=== PATIENT | female | born 1940 | race Caucasian/White ===

== ENCOUNTER 2016-03-20 14:24 | Inpatient (IN) | payer MEDICARE ==
[2016-03-20] VITALS (7 sets, daily range): BP systolic 132–154; BP diastolic 80–92; PULSE 76–96; RESP 17–22; O2SAT 88–99
[~2016-03-20] VITALS: Ht 154.9 cm; Wt 62.8 kg
[2016-03-20 15:22] LABS: BASOPHILS % (AUTO) 0.4 % (0-3); EOSINOPHILS % (AUTO) 2.3 % (0-5); MONOCYTES % (AUTO) 9.5 % (4-12); Mean Corpuscular Hemoglobin 28.5 pg (27.0-35.0); Mean Corpuscular Volume 91.4 fL (81-100); NEUTROPHILS % (AUTO) 72.3 % (40-74); Platelet Count 244 bil/L (150-400)
--- NOTE | 2016-03-20 15:35 | DRSVH ---
PROCEDURE: X-RAY CHEST ONE VIEW ([id number]) INDICATIONS: 75 year-old female with shortness of breath and history of interstitial lung disease. TECHNIQUE: One view of the chest was acquired. COMPARISON: [facility], CT, CT CHEST WO CON, 03/17/2016, 15:12. [facility], CT, CHEST HI-RESOLUTION, 07/22/2014, 13:33. [facility], CR, XR CHEST 2VW, 01/19/2016, 1 4:20. [facility], CR, XR CHEST 2VW, 07/27/2015, 11:10. [facility] [place], CR , CHEST 2VW, 10/28/2010, 10:24. FINDINGS: Surgical changes and devices: None. Lungs and pleura: No pleural effusions or pneumothorax. No acute airspace opacities. Background basa l predominant interstitial opacities are unchanged. Mediastinum: Mediastinal contours appear normal. Mild cardiomegaly is unchanged. Bones and chest wall: No suspicious bony lesions. Overlying soft tissues appear unremarkable. IMPRESSION: Background chronic interstitial lung disease as before, without superimposed acute pulmon idris disease. Dictated by: Jp Carreon M.D. on 03/20/2016 at 15:33 Approved by: Jp Careron M.D. on 03/20/2016 at 15:33
--- NOTE | 2016-03-20 15:36 | ED.REPORT ---
HPI-General Illness Date of Service Mar 20, 2016 ED Provider: Oriana Grimes MD 75 year old female with a hx of interstitial lung disease and HTN who presents to the ED due to SOB that has been progressively worsening over the last 2 weeks. Along with the dyspnea the patient has had worsening edema, chronic cough , decreased urination, constipation (has not had a normal BM for 2 weeks), bloating, nausea and decreased O2 levels. Pt's has a pulse oximeter. Pt has noticed her O2 level as low as 84% with exertion. Pt also uses albuterol inhalers as needed, and Symbicort 2x daily for her interstitial lung disease. She denies CP and vomiting. Nursing Notes Stated Complaint: SHORTNESS OF BREATH, BLOATING, FEET SWELLING Chief Complaint: General Complaint Nursing Notes Reviewed: Yes Allergies: Coded Allergies: codeine (Verified Allergy, Mild, 03/20/16) General Time Seen by MD: 15:35 Chief Complaint Breathing problem Hx Obtained From: Patient, Spouse Arrived By: Walk-in Sudden in Onset?: No Onset Occurred: More than a week ago... Symptom Duration: Since onset Severity: Current: No pain currently Associated with: Reports: Shortness of breath, Denies: Chest pain, Vomiting Pertinent Negative: Relieved by nothing Past Medical History Past Medical History Notes: ECHO 1 year ago with normal EF per patient Past Medical History Interstitial lung disease RA Reports: Hypertension, Denies: Congestive heart failure Past Surgical History None reported Smoking History Former Smoker Social History Other Social History: Ambulatory Status Independent Review of Systems Full Review of Systems Constitutional: Denies: Chills, Fever Respiratory: Reports: Non-productive cough (chronic), Shortness of breath Cardiovascular: Reports: Edema, Denies: Chest pain GI: Reports: Constipation, Nausea, Denies: Abdominal pain, Diarrhea, Vomiting Musculoskeletal: Reports: Extremity swelling, Denies: Back pain, Extremity pain Skin: Denies Diaphoresis, Denies Rash Neurologic: Denies: Change LOC, Headache Complete sys rev & neg: except as marked. Physical Exam Vital Signs Vital Signs Date Time Temp Pulse Resp B/P Pulse Ox O2 Delivery O2 Flow Rate FiO2 03/20/16 17:20 87 19 154/86 91 Nasal Cannula 1.5 03/20/16 16:43 96 18 91 Nasal Cannula 1.5 03/20/16 15:40 89 20 144/84 88 Nasal Cannula 1.5 03/20/16 14:37 36.6 87 20 134/80 93 Room Air Initial VS: Reviewed, Vital signs normal Head / Eyes: Atraumatic, Normocephalic, PERRL ENT: Mucous membranes moist, Conjunctiva normal, No scleral icterus Neck: Supple, Full range of motion Extremities: Vascular intact, Neuro intact Skin: Warm, Dry, No cyanosis Neurologic: Alert, Oriented, Nonfocal Psychiatric: Mood/affect normal, Behavior normal, Normal thought content General/Constitutional: Awake, Alert Respiratory / Chest: No respiratory distress Bilat rales Cardiovascular: Heart rate NL, Regular rhythm, Heart sounds NL, Cap refill not delayed, Peripheral circulation NL Abdomen: Soft, Non-tender, No guarding, No rebound Bowel Sounds / Distention: Positive: Bowel sounds hypoactive Interpretation & Diagnostics Lab Results Interpretation Result Diagram: 03/20/16 1515 03/20/16 1515 Test 03/20/16 15:15 03/20/16 15:52 03/20/16 16:40 White Blood Count 7.9th/mm3 (3.8-10.1) Red Blood Count 4.42mil/mm3 (3.90-5.20) Hemoglobin 12.6g/dL (12.0-15.6) Hematocrit 40.4% (35.0-46.0) Mean Corpuscular Volume 91.4fL (81-100) Mean Corpuscular Hemoglobin 28.5pg (27.0-35.0) Mean Corpuscular Hemoglobin Concent 31.2% (32.0-37.0) Red Cell Distribution Width 16.9% (12.3-15.4) Platelet Count 244bil/L (150-400) Neutrophils (%) (Auto) 72.3% (40-74) Lymphocytes (%) (Auto) 15.1% (14-46) Monocytes (%) (Auto) 9.5% (4-12) Eosinophils (%) (Auto) 2.3% (0-5) Basophils (%) (Auto) 0.4% (0-3) Sodium Level 143mEq/L (134-144) Potassium Level 4.0mEq/L (3.5-5.2) Chloride Level 107mEq/L (97-108) Carbon Dioxide Level 22mmol/L (18-29) Blood Urea Nitrogen 21mg/dL (8-27) Creatinine 0.68mg/dL (0.57-1.00) Estimat Glomerular Filtration Rate 121mL/min (>59) Glucose Level 118mg/dL (60-99) Calcium Level 8.9mg/dL (8.5-10.1) Magnesium Level 1.5mg/dL (1.6-2.6) Total Bilirubin 0.6mg/dL (0.0-1.2) Aspartate Amino Transf (AST/SGOT) 69U/L (0-50) Alanine Aminotransferase (ALT/SGPT) 63U/L (0-32) Alkaline Phosphatase 97U/L (25-165) Troponin T < 0.010ug/L (0.0-0.011) Pro-B-Type Natriuretic Peptide 4000pg/mL (0-738) Total Protein 6.2g/dL (6.4-8.4) Albumin 3.1g/dL (3.4-5.0) Urine Color Yellow (YELLOW) Urine Appearance Hazy (CLEAR,HAZY) Urine pH 5.5 (5.0-8.0) Urine Specific [place] 1.030 (1.003-1.035) Urine Protein Tracemg/dL (NEG,TRACE) Urine Glucose (UA) Negativemg/dL (NEGATIVE) Urine Ketones Negativemg/dL (NEGATIVE) Urine Occult Blood Negative (NEGATIVE) Urine Nitrite Negative (NEGATIVE) Urine Bilirubin Negative (NEGATIVE) Urine Urobilinogen Normalmg/dL (NORMAL) Urine Leukocyte Esterase Negative (NEGATIVE) Urine RBC 0-2/hpf (0-2) Urine WBC 0-5/hpf (0-5) Urine Epithelial Cells Occasional/hpf (NONE-MOD) Urine Crystals None seen (NONE SEEN) Urine Bacteria None/hpf (NONE-FEW) Urine Hyaline Casts None/lpf (NONE) Urine Granular Casts None seen (NONE SEEN) Urine Waxy Casts None seen (NONE SEEN) Urine Red Blood Cell Casts None seen (NONE SEEN) Urine White Blood Cell Casts None seen (NONE SEEN) Urine Mucus None seen (None Seen) Urine Trichomonas None seen (NONE SEEN) Urine Yeast None (NONE SEEN) Urinalysis Comment None Urine Culture Reflexed Not indicated Hold Purple Top Tube Received (Received) Hold Blue Top Tube Received (Received) Thyroid Stimulating Hormone (TSH) 2.420uIU/mL (0.450-4.500) Hold [place] Top Tube Received (Received) Hold [place] Top Tube Received (Received) General Lab Results Interp 1: Labs reviewed ECG Interpretation ECG Interpretation: No acute ST or T wave changes. Time: 15:44 Interpreted by: ED physician Normal ECG Interpretation: Normal rate (87), Normal sinus rhythm, Normal intervals X-Ray Chest Interpretation Chest Xray Interpretation: IMPRESSION: Background chronic interstitial lung disease as before, without superimposed acute pulmonary disease. Dictated by: Jp Carreon M.D. on 03/20/2016 at 15:33 View: Portable, 1 view Interpretation / Wet Read by: Interpret - Radiologist X-Ray Abdominal Interpretation IMPRESSION: 1. No evidence for bowel obstruction or fecal impaction. 2. Background chronic interstitial lung disease again noted. Dictated by: Jp Carreon M.D. on 03/20/2016 at 16:19 Study: 2 view Interpretation / Wet Read by: Interpret - Radiologist Re-Eval/Medical Decision Med Decision/Clinical Course The patient presents with shortness of breath and episodes of hypoxia. History of pulmonary fibrosis. Evaluation here reveals a component of congestive heart failure, the patient really believe looks well but with ambulation she desaturates down to 84% prior admission for oxygenation. Differential diagnoses considered were worsening of her pulmonary fibrosis, pneumonia, pulmonary embolus, acute coronary syndrome, and congestive heart failure. Time of Eval: 17:55 Re-Evaluation/Progress Note: Pt updated of labs, imaging and ECG results. Recommended admission. Pt understands and agrees with plan. All questions addressed. Consultation : Referral / Consult Name: Jayjay Starkey MD Consulted With: Hospitalist Call Returned at: 17:52 Sail Maker: Will see patient, Agrees with eval, Agrees with plan, Accepts admit Counseled Regarding: Diagnosis, Lab results, Need for admission Discharge & Departure Primary Impression: Hypoxia Additional Impressions: Pulmonary fibrosis CHF (congestive heart failure) Congestive heart failure type: unspecified congestive heart failure type Congestive heart failure chronicity: unspecified congestive heart failure chronicity Qualified Code: I50.9 - Heart failure, unspecified Disposition: ADMITTED TO HOSPITAL Discharge Condition All VS Reviewed: Yes Referrals: Jasmin Arceo (PCP) Scribe Attestation Portions of this note were transcribed by Sima Quiroz. I, (Dr. Grimes) personally performed the history, physical exam and medical decision-making; I reviewed and confirmed the accuracy of the information in the transcribed note. Signed by: Sima Quiroz. 03/20/2016, 1800 copies to: Jasmin Arceo Jena M MD Mar 20, 2016 15:36 Sima Quiroz Mar 20, 2016 16:27
[2016-03-20 16:06] LABS: Magnesium 1.5 mg/dL (1.6-2.6)
[2016-03-20 16:07] LABS: TROPONIN T < 0.010 ug/L (0.0-0.011)
[2016-03-20 16:12] LABS: APPEARANCE,URINE HAZY (CLEAR,HAZY); COLOR,URINE YELLOW (YELLOW); PH,URINE 5.5 (5.0-8.0)
[2016-03-20 16:13] LABS: OCCULT BLOOD,URINE NEGATIVE (NEGATIVE); UROBILINOGEN,URINE NORMAL (NORMAL)
--- NOTE | 2016-03-20 16:21 | DRSVH ---
PROCEDURE: X-RAY ABDOMEN WITH ERECT AND/OR DECUBITUS VIEWS ([id number]) INDICATIONS: 75 year-old female with no bowel movements. TECHNIQUE: 2 views of the abdomen were acquired. COMPARISON: [facility], CR, XR CHEST 1VW, 03/20/2016, 14:58. [facility], CT, CT CHEST WO CON, 03/17/2016, 15:12. FINDINGS: Surgical changes and devices: Pessary device projects over the inferior pelvis. Bowel: No pneumoperitoneum. The bowel gas pattern is normal, with no visible stool within the dista l colon. Soft tissues: Chronic basilar pulmonary interstitial opacities are again noted. No masses; visualize d solid organ contours appear normal in size. No suspicious abdominal calcifications. Bones: No suspicious bony abnormalities. IMPRESSION: 1. No evidence for bowel obstruction or fecal impaction. 2. Background chronic interstitial lung disease again noted. Dictated by: Jp Carreon M.D. on 03/20/2016 at 16:19 Approved by: Jp Carreon M.D. on 03/20/2016 at 16:19
[2016-03-20] MEDS ORDERED: Albuterol-Ipratropium 3 mL Inhalation Solution NEB ONE (16:30)
[2016-03-20] MEDS ORDERED: Furosemide 10 mg/mL 2 mL Inj IVPUSH ONE (16:30)
[2016-03-20] MEDS ORDERED: predniSONE 20 mg Tablet PO ONE (17:05)
[2016-03-20] MEDS ORDERED: Alum-Mag Hydrox-Simeth 30 mL Suspension PO PRN (19:05)
[2016-03-20] MEDS ORDERED: Ondansetron 2 mg/mL 2 mL Inj IVPUSH PRN (19:05)
[2016-03-20] MEDS ORDERED: Polyethylene Glycol (PEG) 17 Gm Powder PO PRN (19:05)
[2016-03-20] MEDS ORDERED: Magnesium Sulf 2 Gm/50mL Water 2 GM in IV Premix 1 EACH IV ONE (19:15)
[2016-03-20] MEDS ORDERED: SIMV20TA4 PO (21:58)
[2016-03-20] MEDS ORDERED: OMEP40CA36 PO (21:58)
[2016-03-20] MEDS ORDERED: CLOB15CR3 TOP (21:58)
[2016-03-20] MEDS ORDERED: DIPH25CA6 PO (21:58)
[2016-03-20] MEDS ORDERED: CHOL100045 PO (21:58)
[2016-03-20] MEDS ORDERED: ALBU90AE IH (21:58)
[2016-03-20] MEDS ORDERED: NPR500T PO (21:58)
[2016-03-20] MEDS ORDERED: LEFL20TA18 PO (21:58)
[2016-03-20] MEDS ORDERED: ETAN50PE SQ (21:58)
[2016-03-20] MEDS ORDERED: ALLO300T2 PO (21:58)
[2016-03-20] MEDS ORDERED: diphenhydrAMINE 25 mg Capsule PO PRN (22:00)
--- NOTE | 2016-03-20 22:00 | PCM.HPMED ---
Subjective Date of Service Mar 20, 2016 Primary Provider: Admitting Physician: Jayjay Starkey MD Primary Care Physician: Jasmin Arceo Attending Physician: Jayjay Starkey MD Admit Status: From the Emergency Department Chief Complaint: Shortness of breath with abdominal bloating for 2 weeks. 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 This is thought to be related to her rheumatoid arthritis. She has been experiencing abdominal bloating, along with diminished bowel movements for the last 1-2 weeks. She describes frequent liquid bowel movements without a solid component. Her BNP is very high, and she feels much better in the emergency department after a dose of Lasix. An echocardiogram done last year she reports was normal. She was dropping into the low 80s with activity on room air in the emergency department initially but is feeling much better now after the Lasix. She has never been diagnosed with congestive heart failure and has no cardiac history. There has been no chest pain, palpitations, abdominal pain. There has been no fever or muscle aches but her chronic cough has worsened. She has not traveled anywhere recently and has had no other immobilizing episodes to put her at high risk for a pulmonary embolus. As part of her pulmonary surveillance she had a CT of her chest done just 4 days ago. She will be seeing Dr. Stone in follow-up soon. She had a colonoscopy in [address] [place] [address] Elder and plans for another one in 2019. Her description of the "constipation" sounds worrisome for a solid lesion obstructing with postobstructive liquid leakage. Review of Systems: No fevers, chills, sweats, bleeding, seizures, headaches, chest pain, rash, depression, new allergies. Positive for worsening cough, shortness of breath, chronic joint pain, bloating. Allergies Coded Allergies: codeine (Verified Allergy, Mild, 03/20/16) Home Medications Albuterol HFA Allopurinol 300 mg a day Atenolol 50 mg a day Benadryl as needed Clobetasol ointment as needed Enbrel 50 mg every Sunday subcutaneous Hydrocortisone rectal suppository 25 mg as needed Naproxen 600 mg twice a day Leflunomide 20 mg a day Omeprazole 40 mg a day Simvastatin 20 mg a day Vitamin D 1000 units a day PMH Rheumatoid arthritis Interstitial pulmonary fibrosis Peripheral neuropathy Family History Positive for pulmonary fibrosis in her twin sister, nonspecific arthritis in her father. Social History Occupation: inpatientmedical older adult social work specialist Smoking Status: Former Smoker Exam Vital Signs Vital Sign - Last Date Time Temp Pulse Resp B/P Pulse Ox O2 Delivery O2 Flow Rate FiO2 03/20/16 18:40 79 22 97 Nasal Cannula 1.5 03/20/16 17:20 154/86 03/20/16 14:37 36.6 Exam Alert and oriented 3, no apparent distress. Pupils are equally round and reactive to light and accommodation, extraocular muscles are intact, sclerae are pink and nonicteric. Throat looks normal. JVD is less than 6 cm. No carotid bruits are heard. No lymph nodes are felt head, neck, supraclavicular area. Heart is regular rate and rhythm without murmur. Lungs have coarse crackles at all levels worse at the bases. Abdomen is soft, bowel sounds are active, the bladder is distended, there is no other organomegaly or tenderness. Extremities have no ankle edema Neuro exam. Cranial nerves II through XII tested intact. Motor function is 5 out of 5 throughout. Deep tendon reflexes are normal throughout. Gait and balance are not tested. She recognizes me and has a detailed conversation about historical interactions from her prior work as a clinical older adult social work specialist. Lab and Diagnostics Labs Laboratory Tests 72 Hours Test 03/20/16 15:15 03/20/16 15:52 03/20/16 16:40 White Blood Count 7.9th/mm3 (3.8-10.1) Red Blood Count 4.42mil/mm3 (3.90-5.20) Hemoglobin 12.6g/dL (12.0-15.6) Hematocrit 40.4% (35.0-46.0) Mean Corpuscular Volume 91.4fL (81-100) Mean Corpuscular Hemoglobin 28.5pg (27.0-35.0) Mean Corpuscular Hemoglobin Concent 31.2% (32.0-37.0) Red Cell Distribution Width 16.9% (12.3-15.4) Platelet Count 244bil/L (150-400) Neutrophils (%) (Auto) 72.3% (40-74) Lymphocytes (%) (Auto) 15.1% (14-46) Monocytes (%) (Auto) 9.5% (4-12) Eosinophils (%) (Auto) 2.3% (0-5) Basophils (%) (Auto) 0.4% (0-3) Sodium Level 143mEq/L (134-144) Potassium Level 4.0mEq/L (3.5-5.2) Chloride Level 107mEq/L (97-108) Carbon Dioxide Level 22mmol/L (18-29) Blood Urea Nitrogen 21mg/dL (8-27) Creatinine 0.68mg/dL (0.57-1.00) Estimat Glomerular Filtration Rate 121mL/min (>59) Glucose Level 118mg/dL (60-99) Calcium Level 8.9mg/dL (8.5-10.1) Magnesium Level 1.5mg/dL (1.6-2.6) Total Bilirubin 0.6mg/dL (0.0-1.2) Aspartate Amino Transf (AST/SGOT) 69U/L (0-50) Alanine Aminotransferase (ALT/SGPT) 63U/L (0-32) Alkaline Phosphatase 97U/L (25-165) Troponin T < 0.010ug/L (0.0-0.011) Pro-B-Type Natriuretic Peptide 4000pg/mL (0-738) Total Protein 6.2g/dL (6.4-8.4) Albumin 3.1g/dL (3.4-5.0) Hold [place] Top Tube Received (Received) Received (Received) Urine Color Yellow (YELLOW) Urine Appearance Hazy (CLEAR,HAZY) Urine pH 5.5 (5.0-8.0) Urine Specific [place] 1.030 (1.003-1.035) Urine Protein Tracemg/dL (NEG,TRACE) Urine Glucose (UA) Negativemg/dL (NEGATIVE) Urine Ketones Negativemg/dL (NEGATIVE) Urine Occult Blood Negative (NEGATIVE) Urine Nitrite Negative (NEGATIVE) Urine Bilirubin Negative (NEGATIVE) Urine Urobilinogen Normalmg/dL (NORMAL) Urine Leukocyte Esterase Negative (NEGATIVE) Urine RBC 0-2/hpf (0-2) Urine WBC 0-5/hpf (0-5) Urine Epithelial Cells Occasional/hpf (NONE-MOD) Urine Crystals None seen (NONE SEEN) Urine Bacteria None/hpf (NONE-FEW) Urine Hyaline Casts None/lpf (NONE) Urine Granular Casts None seen (NONE SEEN) Urine Waxy Casts None seen (NONE SEEN) Urine Red Blood Cell Casts None seen (NONE SEEN) Urine White Blood Cell Casts None seen (NONE SEEN) Urine Mucus None seen (None Seen) Urine Trichomonas None seen (NONE SEEN) Urine Yeast None (NONE SEEN) Urinalysis Comment None Urine Culture Reflexed Not indicated Hold Purple Top Tube Received (Received) Hold Blue Top Tube Received (Received) Thyroid Stimulating Hormone (TSH) 2.420uIU/mL (0.450-4.500) Hold [place] Top Tube Received (Received) Result Diagram: 03/20/16 1515 03/20/16 1515 X-Rays, CTs and MRIs FINDINGS: Surgical changes and devices: Pessary device projects over the inferior pelvis. Bowel: No pneumoperitoneum. The bowel gas pattern is normal, with no visible stool within the distal colon. Soft tissues: Chronic basilar pulmonary interstitial opacities are again noted. No masses; visualized solid organ contours appear normal in size. No suspicious abdominal calcifications. Bones: No suspicious bony abnormalities. IMPRESSION: 1. No evidence for bowel obstruction or fecal impaction. 2. Background chronic interstitial lung disease again noted. Surgical changes and devices: None. Lungs and pleura: No pleural effusions or pneumothorax. No acute airspace opacities. Background basal predominant interstitial opacities are unchanged. Mediastinum: Mediastinal contours appear normal. Mild cardiomegaly is unchanged. Bones and chest wall: No suspicious bony lesions. Overlying soft tissues appear unremarkable. IMPRESSION: Background chronic interstitial lung disease as before, without superimposed acute pulmonary disease. 12-lead ECG Sinus rhythm without acute ST or T-wave changes. Assessment & Plan 1 - congestive heart failure and acute hypoxia Response to Lasix is impressive. Recheck a BNP and electrolytes in the morning, anticipating a drop in potassium. Check an echocardiogram and consider cardiology consultation. This is most likely an acute phenomena as a result of the acute bronchitis/ pulmonary fibrosis causing a prolonged days long episode of hypoxia. Troponin is normal, recheck in the morning 2 - interstitial lung disease Review CT scan from 4 days ago Plans follow-up with pulmonology soon 3 - rheumatoid arthritis Continued disease modifying anti-rheumatoid agents, which she is quite attached to and dependent on for control of her symptoms. 4 - altered stool frequency and consistency CT abdomen and pelvis to rule out solid lesion producing postobstructive diarrhea. Check TSH. Consider GI consultation. 5 - elevated liver enzymes This is probably a hepatic congestion phenomena. Recheck LFTs in the morning. 6 - hypomagnesemia Dose with IV magnesium and recheck in the morning. Etiology is unclear Jewel Starkey MD Pain Evaluation: Adequate Pain Control Resuscitation Status: CPR: Attempt Resuscitation Jayjay Starkey MD Mar 20, 2016 19:23
[2016-03-20] MEDS ORDERED: Clobetasol Prop 0.05% 15 Gm Ointment TOPICAL PRN (22:27)
[2016-03-20] MEDS ORDERED: 0.9% Sodium Chloride 250 ML ONE (23:05)
[2016-03-20] MEDS ORDERED: ATEN50TA PO (23:35)
[2016-03-21] VITALS (10 sets, daily range): BP systolic 96–129; BP diastolic 61–85; PULSE 74–88; RESP 17–19; O2SAT 95–98
[2016-03-21 06:35] LABS: BASOPHILS % (AUTO) 0.3 % (0-3); EOSINOPHILS % (AUTO) 0.1 % (0-5); MONOCYTES % (AUTO) 6.7 % (4-12); Mean Corpuscular Hemoglobin 28.9 pg (27.0-35.0); Mean Corpuscular Volume 91.1 fL (81-100); NEUTROPHILS % (AUTO) 79.5 % (40-74); Platelet Count 235 bil/L (150-400)
[2016-03-21 07:07] LABS: Magnesium 2.1 mg/dL (1.6-2.6)
[2016-03-21 07:28] LABS: TROPONIN T < 0.010 ug/L (0.0-0.011)
--- NOTE | 2016-03-21 07:41 | NUR ---
Admit note Patient arrived to floor at 1910. Patient was A&Ox3. Peripheral IV saline locked and patent. Vital signs stable.Report received from Carolina GUERRA.
[2016-03-21] MEDS: Pantoprazole 40 mg ER24 Tablet PO SCH (08:10)
--- NOTE | 2016-03-21 11:59 | DRSVH ---
PROCEDURE: CT ABDOMEN AND PELVIS WITH CONTRAST ([id number]) INDICATIONS: Obstructive Diarrhea TECHNIQUE: After the administration of oral and intravenous contrast, 5 mm thick sections acquired from the diap hragms to the symphysis. 5 mm thick coronal and sagittal reformats were performed. For radiation do se reduction, the following was used: automated exposure control, adjustment of mA and/or kV accordi ng to patient size. COMPARISON: None. FINDINGS: Image quality: Excellent. ABDOMEN: Lung bases: Severe fibrotic changes and small pleural effusions are present present. Solid organs: The liver is diffusely hypodense suggesting fatty infiltration. The spleen demonstrat es normal size and enhancement. Gallbladder is unremarkable. Biliary system is non-dilated. Pancrea s enhances normally. No adrenal nodules. Kidneys are normal in size and enhancement, without hydron ephrosis. Peritoneum and bowel: The stomach is decompressed and contrast filled. The small bowel demonstrates n ormal caliber and wall thickness. The appendix demonstrates normal wall thickness and is contrast-nicci led. The ascending, descending, and transverse colon demonstrate normal caliber and wall thickness. T here are multiple diverticular outpouchings in the descending and sigmoid colon. The pericolonic fat stranding is present in the rectosigmoid region. No discrete mucosal thickening. No evidence for liqu id stool within the colon. No pneumatosis or pneumoperitoneum. No discrete free fluid. Nodes and vessels: No retroperitoneal or mesenteric adenopathy. Aorta and inferior vena cava are no rmal in caliber. There are scattered atheromatous calcifications throughout the aorta and iliac arter ies bilaterally. Miscellaneous: No ventral hernias. PELVIS: A pessary is present in the vagina. The uterus and ovaries are grossly unremarkable. Genitourinary: Bladder wall thickness is normal. Miscellaneous: No inguinal hernias or adenopathy. There is diffuse anasarca. Bones: No suspicious bony lesions. No vertebral body compression fractures. IMPRESSION: 1. Mild pericolonic fat stranding in the region of the rectosigmoid which is a nonspecific finding, b ut may be associated with a mild colitis. There is no associated wall thickening in this region. 2. Diverticulosis. No findings to suggest acute diverticulitis. Normal appendix. 3. Generalized anasarca and small pleural effusions. 4. Severe pulmonary fibrosis. 5. No bowel dilatation to suggest obstruction. No findings to suggest liquid stool in the colon. Dictated by: Jyoti Stauffer M.D. on 03/21/2016 at 11:57 Approved by: Jyoti Stauffer M.D. on 03/21/2016 at 11:57
--- NOTE | 2016-03-21 17:40 | DRSVH ---
[facility] [address] [place] [address] Echocardiogram Report Name: CRISTIANE CHANCE EStudy Date : 03/21/2016 Height: 61 in Hospital Exam Location: [facility] Weight: 145 lb Gender: Female BSA: 1.6 m2 : 1940 Age: 75 yrs BP: 129/85 mm Hg Reason For Study: Congestive Heart Failure History: pulmonary fibrosis Ordering Physician: Performed By: Valery Euceda Referring Physician: Jasmin Arceo Interpretation Summary The left ventricle is normal in size. The ejection fraction is estimated to be 65-70%. Flattened septum is consistent with RV pressure overload. There is severe pulmonary hypertension. The right ventricular systolic pressure is estimated at 90 mmHg assuming a right atrial pressure of 8 mm Hg. The right ventricle is moderate to severely dilated. Right ventricular systolic function is moderate to severely reduced. The right atrium is severely dilated. The interatrial septum bows toward left atrium consistent with elevated right atrial pressure. There is moderate to severe tricuspid regurgitation. Compared with the prior exam from 09/03/2014, the RV is significantly enlarged and RV function reduced. The severe TR and severe pulmonary hypertension is also new. No other echocardiographic abnormalities seen. Procedure: A two-dimensional transthoracic echocardiogram with color flow and Doppler was performed. The study quality was technically adequate. Comparison is made with the echocardiogram of 09/03/2014. The patient was in normal sinus rhythm during the exam. Left Ventricle: The left ventricle is normal in size. There is normal left ventricular wall thickness. A false chord is noted (normal variant). 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 The ejection fraction is estimated to be 65-70%. Flattened septum is consistent with RV pressure overload. There are no obvious focal wall motion abnormalities noted but poor endocardial definition reduces the sensitivity for the detection of such. The E/A ratio is reversed with an elevated E/E', suggesting impaired early relaxation of the left ventricle with possible increased filling pressures. Right Ventricle: The right ventricle is moderate to severely dilated. There is no mass or thrombus in the right ventricle. Right ventricular systolic function is moderate to severely reduced. Atria: The left atrium grossly appears normal in size. The right atrium is severely dilated. There is no Doppler evidence for an interatrial shunt. The interatrial septum bows toward left atrium consistent with elevated right atrial pressure. Mitral Valve: The mitral valve leaflets are mildly calcified. The mitral valve chordae are thickened and/or calcified. The mitral papillary muscle appears thickened and/or calcified. There is no mitral regurgitation noted. Aortic Valve: The aortic valve is trileaflet. The aortic valve opens well. There is moderate aortic valve sclerosis. No aortic regurgitation is present. Tricuspid Valve: The tricuspid valve leaflets are thickened and/or calcified, but open well. There is moderate to severe tricuspid regurgitation. The right ventricular systolic pressure is estimated at 90 mmHg assuming a right atrial pressure of 8 mm Hg. There is severe pulmonary hypertension. Pulmonic Valve: The pulmonic valve is normal in structure and function. Great Vessels: The aortic root is normal size. The ascending aorta is normal in size. The aortic arch could not be visualized. The IVC is of normal diameter and collapses less than 50% with a sniff. This suggests a right atrial pressure of 8 mm Hg. Pericardium/ Pleura There is no pericardial effusion. MMode/2D Measurements & Calculations LVIDd: 4.0 cm RA long axis LVOT diam LVIDs: 2.4 cm LA A2 area: 15.2 cm FS: 41.0 % LA A4 area: 16.7 cm RA area AoV Opening EPSS: 0.45 cm LA length (vol): 5.4 cm IVSd: 0.75 cm LA vol: 39.6 ml : 23.4 cm Ao root diam LVPWd: 0.87 cm LA vol index RA vol : 77.2 ml asc Aorta RA Diam: 3.2 cm IVC diam: 2.1 cm : 46.8 mm/ RVDd minor : 3.5 cm LV young. diameter/BSA LV sys. diameter/BSA TAPSE: 1.5 cm (cm/m^2): 2.4 (cm/m^2): 1.4 Doppler Measurements & Calculations Ao V2 max MV E max cesar MV E/A: 0.89 TR max cesar : 135.0 cm/sec : 111.0 cm/sec Med Peak E' Cesar : 453.5 cm/sec Ao max PG MV A max cesar TR max PG : 7.3 mmHg : 124.3 cm/sec E/E' med: 17.1 : 82.3 mmHg Ao mean PG MV P1/2t: 76.9 msec Pulm A Revs Dur PA V2 max MVA(VTI): 1.4 cm2 : 68.5 cm/sec LVOT Max Cesar MV A dur: 0.11 sec PA mean PG : 87.5 cm/sec IGNACIO(I,D): 1.7 cm PA Accel Time sev ratio : 0.06 sec MV V2 mean MV P1/2t max cesar Ao V2 mean LV V1 max PG : 72.7 cm/sec : 94.8 cm/sec MV mean PG Ao V2 VTI: 24.9 cm LV V1 VTI MVA(P1/2t): 2.9 cm2 : 17.3 cm MV V2 VTI IGNACIO(V,D): 1.6 cm2 MV dec time : 0.26 sec PA V2 mean IGNACIO indexed to BSA Pulm A Revs Dur - MV : 48.4 cm/sec (cm^2/m^2): 1.0 A Dur: -0.03 msec Reading Physician:05:40 PM
[2016-03-21] MEDS ORDERED: SULF-239 PO (17:54)
[2016-03-21] MEDS ORDERED: SULF1TAB7 PO (18:04)
[2016-03-21] MEDS: Albuterol 2.5 mg/3 mL Inhalation Solution NEB PRN (22:56)
--- NOTE | 2016-03-21 23:30 | PCM.PNMED ---
Subjective Date of Service Mar 21, 2016 Subjective Patient has no new complaints. She is feeling much better than when she came into the emergency room. She has no chest pain and states that the diagnosis of congestive heart failure is all new to her Exam Vital Signs Vital Sign - Last Date Time Temp Pulse Resp B/P Pulse Ox O2 Delivery O2 Flow Rate FiO2 03/21/16 23:11 75 03/21/16 22:57 18 96 Nasal Cannula 2.00 03/21/16 20:01 36.5 99/61 Intake and Output 03/20/16 03/20/16 03/21/16 Cumulative From/Thru 15:00 23:00 07:00 03/20/16 14:37 - 03/21/16 05:32 Intake Total 560 ml 560 ml Output Total 700 ml 700 ml Balance -140 ml -140 ml Intake Oral 560 ml 560 ml Output Urine Total 700 ml 700 ml Exam General: Patient is lying comfortably in bed with her head elevated about 30. She appears comfortable at present time. HEENT: Head is atraumatic normocephalic. Eyes: Pupils are equally round and reactive to light and accommodation. Extraocular muscles are intact. Sclera are white anicteric. Subconjunctival mucosa is pink. Ears and nose are unremarkable. Oropharynx: There are no mucosal lesions, there is no thrush, there is no pharyngitis. Neck: Is supple, there are no nodes, or masses, or tenderness. Chest: Patient has some bibasilar rales, otherwise the lungs are clear. Heart: Rate, rhythm is regular. There is a grade 2/6 systolic ejection murmur heard best at left sternal border. There is no rub or gallop. Abdomen: Good bowel sounds are present. Abdomen is soft, nontender, no organomegaly or masses were appreciated. Extremities: Are symmetrical and well perfused. There is no edema, there is no cellulitis, no rash. Neurologic: There are no focal neurological deficits. Cranial nerves II through XII are intact. There are no sensory or motor deficits. Psychiatric: Patients mood is calm and shows no sign of agitation. Genital: Deferred Rectal: Deferred Lab and Diagnostics Result Diagram: 03/21/16 0605 03/21/16 0605 X-Rays, CTs and MRIs FINDINGS: Surgical changes and devices: Pessary device projects over the inferior pelvis. Bowel: No pneumoperitoneum. The bowel gas pattern is normal, with no visible stool within the distal colon. Soft tissues: Chronic basilar pulmonary interstitial opacities are again noted. No masses; visualized solid organ contours appear normal in size. No suspicious abdominal calcifications. Bones: No suspicious bony abnormalities. IMPRESSION: 1. No evidence for bowel obstruction or fecal impaction. 2. Background chronic interstitial lung disease again noted. Surgical changes and devices: None. Lungs and pleura: No pleural effusions or pneumothorax. No acute airspace opacities. Background basal predominant interstitial opacities are unchanged. Mediastinum: Mediastinal contours appear normal. Mild cardiomegaly is unchanged. Bones and chest wall: No suspicious bony lesions. Overlying soft tissues appear unremarkable. IMPRESSION: Background chronic interstitial lung disease as before, without superimposed acute pulmonary disease. 12-lead ECG Sinus rhythm without acute ST or T-wave changes. Cardiac Echo Impressions Echocardiogram Report Name: CRISTIANE CHANCE EStudy Date : 03/21/2016 Height: 61 in Hospital Exam Location: [facility] Weight: 145 lb Gender: Female BSA: 1.6 m2 : 1940 Age: 75 yrs BP: 129/85 mm Hg Reason For Study: Congestive Heart Failure History: pulmonary fibrosis Ordering Physician: Performed By: Valery Euceda Referring Physician: Jasmin Arceo Interpretation Summary The left ventricle is normal in size. The ejection fraction is estimated to be 65-70%. Flattened septum is consistent with RV pressure overload. There is severe pulmonary hypertension. The right ventricular systolic pressure is estimated at 90 mmHg assuming a right atrial pressure of 8 mm Hg. The right ventricle is moderate to severely dilated. Right ventricular systolic function is moderate to severely reduced. The right atrium is severely dilated. The interatrial septum bows toward left atrium consistent with elevated right atrial pressure. There is moderate to severe tricuspid regurgitation. Compared with the prior exam from 09/03/2014, the RV is significantly enlarged and RV function reduced. The severe TR and severe pulmonary hypertension is also new. No other echocardiographic abnormalities seen. 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 This is thought to be related to her rheumatoid arthritis. She has been experiencing abdominal bloating, along with diminished bowel movements for the last 1-2 weeks. She describes frequent liquid bowel movements without a solid component. Her BNP is very high, and she feels much better in the emergency department after a dose of Lasix. An echocardiogram done last year she reports was normal. She was dropping into the low 80s with activity on room air in the emergency department initially but is feeling much better now after the Lasix. She has never been diagnosed with congestive heart failure and has no cardiac history. There has been no chest pain, palpitations, abdominal pain. There has been no fever or muscle aches but her chronic cough has worsened. She has not traveled anywhere recently and has had no other immobilizing episodes to put her at high risk for a pulmonary embolus. As part of her pulmonary surveillance she had a CT of her chest done just 4 days ago. She will be seeing Dr. Stone in follow-up soon. 1 - Right sided congestive heart failure and acute hypoxia -Response to Lasix was impressive. Continue Lasix daily. Patient was also placed on Coreg and lisinopril. May need to add calcium channel christian or other agent for pulmonary hypertension. -Recheck a BNP and electrolytes in the morning, anticipating a drop in potassium. Monitor and correct electrolytes as needed. The echocardiogram showed significant right-sided heart failure with tricuspid regurgitation and pulmonary hypertension- would recommend cardiology consultation. This is most likely an acute phenomena as a result of the acute bronchitis/ pulmonary fibrosis causing a prolonged days long episode of hypoxia. Troponin is normal, recheck in the morning 2 - Interstitial lung disease with significant pulmonary hypertension and right- sided heart failure Review CT scan from 4 days ago Recommend pulmonary consultation. Patient sees Dr. Stone on a regular basis. 3 - Rheumatoid arthritis stable Continued disease modifying anti-rheumatoid agents, which she is quite attached to and dependent on for control of her symptoms. Keep in mind the patient is immunosuppressed and will continue trimethoprim sulfamethoxazole on Sunday, Sunday and Sunday 4 - Altered stool frequency and consistency CT abdomen and pelvis to rule out solid lesion producing postobstructive diarrhea. Check TSH. Consider GI consultation. 5 - Elevated liver enzymes This is probably a hepatic congestion phenomena. Recheck LFTs in the morning. 6 - Hypomagnesemia Dose with IV magnesium and recheck in the morning. Replete magnesium as needed. Etiology is unclear Disposition: Patient is likely to be here another 48-72 hours to treat her current condition. Dr. Greenberg to follow in a.m. Pain Evaluation: Adequate Pain Control GI Prophylaxis: Proton Pump Inhibitor VTE Prophylaxis: Sub-Q Enoxaparin VTE Mechanical Devices: Intermittant Pneumatic CD Resuscitation Status: CPR: Attempt Resuscitation Issac Kaufman MD Mar 21, 2016 23:30
[2016-03-22] VITALS (9 sets, daily range): BP systolic 103–130; BP diastolic 65–77; PULSE 75–96; RESP 17–20; O2SAT 92–98
--- NOTE | 2016-03-22 02:19 | NUR ---
Coughing Patient had cough that became difficult for her to clear. Patient asked for nebulizer treatment. After neb treatment, patient stated she felt better and the coughing seemed to subside. Patient on 1 1/2L O2 at 96%. Patient up to bathroom independent.
[2016-03-22 06:37] LABS: BASOPHILS % (AUTO) 0.5 % (0-3); EOSINOPHILS % (AUTO) 3.4 % (0-5); MONOCYTES % (AUTO) 11.4 % (4-12); Mean Corpuscular Hemoglobin 28.4 pg (27.0-35.0); Mean Corpuscular Volume 91.5 fL (81-100); NEUTROPHILS % (AUTO) 55.4 % (40-74); Platelet Count 232 bil/L (150-400)
[2016-03-22 07:06] LABS: Magnesium 1.8 mg/dL (1.6-2.6); Phosphorus 3.1 mg/dL (2.5-4.9)
[2016-03-22] MEDS: Albuterol 2.5 mg/3 mL Inhalation Solution NEB PRN ×2 (07:12→16:45)
[2016-03-22] MEDS: Trimethoprim-Sulfa 160 mg-800 mg Tablet PO SCH (09:17)
[2016-03-22] MEDS: Pantoprazole 40 mg ER24 Tablet PO SCH (09:18)
[2016-03-22] MEDS ORDERED: Magnesium Sulf 2 Gm/50mL Water 2 GM in IV Premix 1 EACH IV ONE (13:30)
--- NOTE | 2016-03-22 14:57 | NUR ---
Cardiac Pt was hypotensive overnight with BP of 103/65 at start of shift (HRR 86). Withheld Lisinopril and Coreg doses after discussion with Dr. Greenberg who said he would adjust her medications. Between 1230 and 1300, per telemetry, pt had 16 beats of Vtach, followed by sinus rhythm, 13 beats of Vtach, sinus rhythm and then 9 beats. Pt was asymptomatic and sitting in bed talking to inbetween trips to the bathroom. paged and made aware. Magnesium sulfate given per orders.
--- NOTE | 2016-03-22 15:07 | PCM.PNMED ---
Subjective Date of Service Mar 22, 2016 Subjective pt still have mucus from rectum, had BRBPR, had soft stool overnight denied any abdominal pain required minimal O2 2liters >95%, denied orthopnea/PND overnight Pulmonary consulted given possible worsening pulmonary fibrosis, significant cor pulmonale pt had asymptomatic episode of NSVT 16beats PM, resolved spontaneously Exam Vital Signs Vital Sign - Last Date Time Temp Pulse Resp B/P Pulse Ox O2 Delivery O2 Flow Rate FiO2 03/22/16 13:55 37.0 96 20 130/77 92 Nasal Cannula 1.50 Intake and Output 03/21/16 03/21/16 03/22/16 Cumulative From/Thru 15:00 23:00 07:00 03/20/16 14:37 - 03/22/16 06:57 Intake Total 1400 ml 300 ml 2260 ml Output Total 1100 ml 800 ml 2600 ml Balance 300 ml -500 ml -340 ml Intake Oral 1400 ml 300 ml 2260 ml Output Urine Total 1100 ml 800 ml 2600 ml Exam NAD, comfortably laying down on the bed no JVD, MMM, no LAD RRR, nl s1, s2 no mrg diffuse inspiratory crackles S,ND,NT,normoactive BS+ warm, 1+pitting edema, symmetric, pulses 2/2 IVs and Medications Medications Reviewed: Medications were reviewed in detail Lab and Diagnostics Result Diagram: 03/22/16 0548 03/22/16 0548 X-Rays, CTs and MRIs FINDINGS: Surgical changes and devices: Pessary device projects over the inferior pelvis. Bowel: No pneumoperitoneum. The bowel gas pattern is normal, with no visible stool within the distal colon. Soft tissues: Chronic basilar pulmonary interstitial opacities are again noted. No masses; visualized solid organ contours appear normal in size. No suspicious abdominal calcifications. Bones: No suspicious bony abnormalities. IMPRESSION: 1. No evidence for bowel obstruction or fecal impaction. 2. Background chronic interstitial lung disease again noted. Surgical changes and devices: None. Lungs and pleura: No pleural effusions or pneumothorax. No acute airspace opacities. Background basal predominant interstitial opacities are unchanged. Mediastinum: Mediastinal contours appear normal. Mild cardiomegaly is unchanged. Bones and chest wall: No suspicious bony lesions. Overlying soft tissues appear unremarkable. IMPRESSION: Background chronic interstitial lung disease as before, without superimposed acute pulmonary disease. 12-lead ECG Sinus rhythm without acute ST or T-wave changes. Cardiac Echo Impressions Echocardiogram Report Name: CRISTIANE CHANCE EStudy Date : 03/21/2016 Height: 61 in Hospital Exam Location: [facility] Weight: 145 lb Gender: Female BSA: 1.6 m2 : 1940 Age: 75 yrs BP: 129/85 mm Hg Reason For Study: Congestive Heart Failure History: pulmonary fibrosis Ordering Physician: Performed By: Valery Euceda Referring Physician: Jasmin Arceo Interpretation Summary The left ventricle is normal in size. The ejection fraction is estimated to be 65-70%. Flattened septum is consistent with RV pressure overload. There is severe pulmonary hypertension. The right ventricular systolic pressure is estimated at 90 mmHg assuming a right atrial pressure of 8 mm Hg. The right ventricle is moderate to severely dilated. Right ventricular systolic function is moderate to severely reduced. The right atrium is severely dilated. The interatrial septum bows toward left atrium consistent with elevated right atrial pressure. There is moderate to severe tricuspid regurgitation. Compared with the prior exam from 09/03/2014, the RV is significantly enlarged and RV function reduced. The severe TR and severe pulmonary hypertension is also new. No other echocardiographic abnormalities seen. 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 This is thought to be related to her rheumatoid arthritis. She has been experiencing abdominal bloating, along with diminished bowel movements for the last 1-2 weeks. She describes frequent liquid bowel movements without a solid component. Her BNP is very high, and she feels much better in the emergency department after a dose of Lasix. An echocardiogram done last year she reports was normal. She was dropping into the low 80s with activity on room air in the emergency department initially but is feeling much better now after the Lasix. She has never been diagnosed with congestive heart failure and has no cardiac history. There has been no chest pain, palpitations, abdominal pain. There has been no fever or muscle aches but her chronic cough has worsened. She has not traveled anywhere recently and has had no other immobilizing episodes to put her at high risk for a pulmonary embolus. As part of her pulmonary surveillance she had a CT of her chest done just 4 days ago. She will be seeing Dr. Stone in follow-up soon. active, acute #RHF, cor pulmonale presumably due to pulmonary fibrosis. TTE 03/21 showed [id number], normal EF/LV function. 03/22 episode of NSVT 16beats. -continue i/o, daily wt, -continue lasix 40 po daily for today, -500cc after MN, seemed responding, given RHF, would not continue aggressive diuresis, will get repeat CXR today. -will continue BB, ACEI, will titrate coreg hold SBP<100, HR<60 -given suspicion of primary lung process, cardiology was not consulted today -strictly keep Mg>2, K>4 to avoid ventricular arrhythmia, #chronic cough secondary to idiopathic interstitial fibrosis ?likely a/w RA, not home O2. Recent chest CT 03/17 showed Overall increase in the severity of pulmonary fibrosis when compared with the prior study(). Specifically, the extent of disease is increased in the upper and midlungs when compared with the prior study.No superimposed acute air space disease. -appreciate pulmonary input, as per , deferred to start prednisone, regular tower watchman is in service tomorrow -O2 supplement as needed. target>95%, will try to wean off O2 upon d/c, otherwise reassess for home O2 #persistent diarrhea with mucus, possible blood, POA, CT abd with contrast 03/21 showed Mild pericolonic fat stranding in the region of the rectosigmoid which is a nonspecific finding vs mild colitis. There is no associated wall thickening in this region. 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
[2016-03-23] VITALS (9 sets, daily range): BP systolic 101–130; BP diastolic 64–81; PULSE 72–110; RESP 16–20; O2SAT 94–98
--- NOTE | 2016-03-23 02:24 | NUR ---
Activity tolerance Sats on 1.5L 02 in the mid 90s.Lungs with coarse crackles bilat.Denies SOB yet some noted with mild exertion.Has intermittent dry cough and states neb. treatments helpful.Up ind. and najma. activity well.Sleeping soundly at this time and resting comfortably.Will cont. to monitor.
[2016-03-23 07:38] LABS: BASOPHILS % (AUTO) 0.6 % (0-3); EOSINOPHILS % (AUTO) 5.3 % (0-5); MONOCYTES % (AUTO) 14.3 % (4-12); Mean Corpuscular Hemoglobin 28.4 pg (27.0-35.0); Mean Corpuscular Volume 92.2 fL (81-100); NEUTROPHILS % (AUTO) 49.4 % (40-74); Platelet Count 199 bil/L (150-400)
[2016-03-23 08:08] LABS: Phosphorus 2.8 mg/dL (2.5-4.9)
[2016-03-23] MEDS: Pantoprazole 40 mg ER24 Tablet PO SCH (10:11)
[2016-03-23] MEDS: Albuterol 2.5 mg/3 mL Inhalation Solution NEB PRN ×2 (14:25→20:02)
--- NOTE | 2016-03-23 14:25 | NUR ---
Increasing SOB and low output Pt has only had 150 output by 1400, so encouraged pt to increase fluid intake and will continue to monitor. MD aware. Pt having increased SOB at 1415, reconnected [employer] and 02 is 96% on 1.5L NC. Still has coarse crackles bilaterally in bases. Called RT for nebulizer treatment. Will continue to monitor. Pt has call light.
--- NOTE | 2016-03-23 16:34 | PCM.PNMED ---
Subjective Date of Service Mar 23, 2016 Subjective pt still coughing, producing mucus-small amount, denied abdominal pain awaiting Dr.Parimi brown today Exam Vital Signs Vital Sign - Last Date Time Temp Pulse Resp B/P Pulse Ox O2 Delivery O2 Flow Rate FiO2 03/23/16 14:27 97 20 96 Nasal Cannula 3.00 03/23/16 12:58 37.0 101/64 Intake and Output 03/22/16 03/22/16 03/23/16 Cumulative From/Thru 15:00 23:00 07:00 03/20/16 14:37 - 03/23/16 06:10 Intake Total 1450 ml 540 ml 4250 ml Output Total 2200 ml 860 ml 5660 ml Balance -750 ml -320 ml -1410 ml Intake Oral 1400 ml 540 ml 4200 ml IV Total 50 ml 50 ml Output Urine Total 2200 ml 860 ml 5660 ml Exam NAD, comfortably laying down on the bed no JVD, MMM, no LAD RRR, nl s1, s2 no mrg diffuse inspiratory crackles S,ND,NT,normoactive BS+ warm, 1+pitting edema, symmetric, pulses 2/2 IVs and Medications Medications Reviewed: Medications were reviewed in detail Lab and Diagnostics Result Diagram: 03/23/1671403/23/16 0715 X-Rays, CTs and MRIs FINDINGS: Surgical changes and devices: Pessary device projects over the inferior pelvis. Bowel: No pneumoperitoneum. The bowel gas pattern is normal, with no visible stool within the distal colon. Soft tissues: Chronic basilar pulmonary interstitial opacities are again noted. No masses; visualized solid organ contours appear normal in size. No suspicious abdominal calcifications. Bones: No suspicious bony abnormalities. IMPRESSION: 1. No evidence for bowel obstruction or fecal impaction. 2. Background chronic interstitial lung disease again noted. Surgical changes and devices: None. Lungs and pleura: No pleural effusions or pneumothorax. No acute airspace opacities. Background basal predominant interstitial opacities are unchanged. Mediastinum: Mediastinal contours appear normal. Mild cardiomegaly is unchanged. Bones and chest wall: No suspicious bony lesions. Overlying soft tissues appear unremarkable. IMPRESSION: Background chronic interstitial lung disease as before, without superimposed acute pulmonary disease. 12-lead ECG Sinus rhythm without acute ST or T-wave changes. Cardiac Echo Impressions Echocardiogram Report Name: CRISTIANE CHANCE EStudy Date : 03/21/2016 Height: 61 in Hospital Exam Location: [facility] Weight: 145 lb Gender: Female BSA: 1.6 m2 : 1940 Age: 75 yrs BP: 129/85 mm Hg Reason For Study: Congestive Heart Failure History: pulmonary fibrosis Ordering Physician: Performed By: Valery Euceda Referring Physician: Jasmin Arceo Interpretation Summary The left ventricle is normal in size. The ejection fraction is estimated to be 65-70%. Flattened septum is consistent with RV pressure overload. There is severe pulmonary hypertension. The right ventricular systolic pressure is estimated at 90 mmHg assuming a right atrial pressure of 8 mm Hg. The right ventricle is moderate to severely dilated. Right ventricular systolic function is moderate to severely reduced. The right atrium is severely dilated. The interatrial septum bows toward left atrium consistent with elevated right atrial pressure. There is moderate to severe tricuspid regurgitation. Compared with the prior exam from 09/03/2014, the RV is significantly enlarged and RV function reduced. The severe TR and severe pulmonary hypertension is also new. No other echocardiographic abnormalities seen. 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 This is thought to be related to her rheumatoid arthritis. She has been experiencing abdominal bloating, along with diminished bowel movements for the last 1-2 weeks. She describes frequent liquid bowel movements without a solid component. Her BNP is very high, and she feels much better in the emergency department after a dose of Lasix. An echocardiogram done last year she reports was normal. She was dropping into the low 80s with activity on room air in the emergency department initially but is feeling much better now after the Lasix. She has never been diagnosed with congestive heart failure and has no cardiac history. There has been no chest pain, palpitations, abdominal pain. There has been no fever or muscle aches but her chronic cough has worsened. She has not traveled anywhere recently and has had no other immobilizing episodes to put her at high risk for a pulmonary embolus. As part of her pulmonary surveillance she had a CT of her chest done just 4 days ago. She will be seeing Dr. Stone in follow-up soon. active, acute #RHF, cor pulmonale presumably due to pulmonary fibrosis. TTE 03/21 showed [id number], normal EF/LV function. on 03/22 episode of NSVT 16beats. -continue i/o, daily wt, -pt got lasix 40 bid yesterday, good UOP-1liters, gave one dose today, given RHF , would not continue aggressive diuresis, -will continue BB, ACEI,however, no clear benefits for RHF, will titrate coreg hold SBP<100, HR<60 -given impression of primary lung process, cardiology was not consulted today -strictly keep Mg>2, K>4 to avoid ventricular arrhythmia, #chronic cough secondary to idiopathic interstitial fibrosis ?likely a/w RA, not home O2. Recent chest CT 03/17 showed Overall increase in the severity of pulmonary fibrosis when compared with the prior study(). Specifically, the extent of disease is increased in the upper and midlungs when compared with the prior study.No superimposed acute air space disease. -appreciate pulmonary input, , regarding home O2/steroid use. -O2 supplement as needed. target>95%, will try to wean off O2 upon d/c, otherwise reassess for home O2 #persistent diarrhea with mucus, possible blood, POA, CT abd with contrast 03/21 showed Mild pericolonic fat stranding in the region of the rectosigmoid which is a nonspecific finding vs mild colitis. There is no associated wall thickening in this region. stool PCR/FOBT all neg. 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 dvt ppx: SCD Full code diet: regular GI Prophylaxis: Proton Pump Inhibitor VTE Prophylaxis: Sub-Q Enoxaparin VTE Mechanical Devices: Intermittant Pneumatic CD Resuscitation Status: CPR: Attempt Resuscitation Time spent 35min Cristel Greenberg MD Mar 23, 2016 16:34
--- NOTE | 2016-03-23 17:04 | DRSVH ---
PROCEDURE: CT ANGIO CHEST PULMONARY EMBOLISM ([id number]) INDICATIONS: r/o PE. acute right heart failure TECHNIQUE: After the administration of intravenous contrast, 2 mm thick sections acquired from the pulmonary api esvin to the posterior costophrenic angles. 3-dimensional maximum intensity projection (MIP) coronal a nd sagittal reformats were then acquired through the thorax. For radiation dose reduction, the follo wing was used: automated exposure control, adjustment of mA and/or kV according to patient size. COMPARISON: [facility], CT, CT CHEST WO CON, 03/17/2016, 15:12. FINDINGS: Image quality: Excellent. Pulmonary arteries: Pulmonary arteries are normal in size, and demonstrate no intraluminal filling d efects to suggest central pulmonary embolism. Lungs and pleura: Severe fibrotic changes are redemonstrated similar in extent to the study dated . No new superimposed acute airspace opacities. Mediastinum: Heart size is enlarged. There is a trace of low-density pericardial effusion. There are multiple shotty mediastinal lymph nodes, some of which measure approximately 1 cm in diameter which is the lower limit for pathologic enlargement. Thoracic aorta is normal in caliber and enhancement. Esophagus is normal in caliber, without hiatal hernia. Bones and chest wall: No suspicious bony lesions. Ribs and thoracic spine appear intact throughout. Thyroid gland is unremarkable. No axillary or supraclavicular adenopathy. Abdomen: Visualized upper abdominal solid organs appear normal in the early arterial phase of enhanc ement. IMPRESSION: 1. No acute pulmonary embolus. 2. Severe pulmonary fibrosis. 3. Cardiomegaly and trace pericardial effusion. Dictated by: Jyoti Stauffer M.D. on 03/23/2016 at 17:02 Approved by: Jyoti Stauffer M.D. on 03/23/2016 at 17:02
--- NOTE | 2016-03-23 17:08 | CONS ---
[address] [address] CONSULTATION REPORT PATIENT: CRISTIANE CHANCE : 1940 MR#: [id number] ADMIT: 03/20/2016 JOB ID: [id number] DATE OF SERVICE: 03/23/2016 PULMONARY CONSULTATION NOTE. The patient is a 75-year-old woman known to me from outpatient pulmonary clinic with history of rheumatoid arthritis, associated interstitial lung disease on immunosuppression admitted with increasing shortness of breath and some GI issues. I am seeing her in consultation regarding interstitial lung disease and worsening shortness of breath at the request of Dr. Greenberg. HISTORY OF PRESENT ILLNESS: The patient is a 75-year-old woman with history of rheumatoid arthritis and interstitial lung disease who is currently maintained on Enbrel, leflunomide, mycophenolate 500 mg daily for management of her joint and lung disease. She is currently not on any oxygen at home and has been attending pulmonary rehab, with stable lung function tests. She began having worsening abdominal bloating and weight gain over the last few weeks. She says in total she has gained about 13 or more pounds in the last 2-3 weeks. She has had worsening lower extremity edema and some change in bowel pattern in addition. Subsequently, she began noticing worsening shortness of breath which was significantly different than her baseline. I had last treated her with a short course of prednisone for bronchitis a month or more ago, and she felt better with that but soon after began to get worse with these current symptoms. She denies any fever, chills, change in her joint symptoms, skin rashes, etc. She presented to the emergency department with these multiple complaints and was more hypoxic than her baseline. Her BNP was high in the 4000 range so she was given a dose of IV Lasix with which she had a rapid dramatic response including improvement in her symptomatology. She was admitted to the hospital and has been having a workup done for bowel infections and also had an abdominal CT done. She has also had a repeat echocardiogram which showed findings consistent with acute right heart failure with severe pulmonary hypertension and cor pulmonale. She is currently on 1-2 L of oxygen which is new for her compared to her baseline. PAST MEDICAL HISTORY: 1. Rheumatoid arthritis-on Enbrel, leflunomide. 2. Interstitial lung disease related to rheumatoid arthritis-currently only on low-dose mycophenolate. 3. Mild asthma. SOCIAL HISTORY: Distant positive smoking history. She is and her has pulmonary fibrosis as well. FAMILY HISTORY: Her sister of idiopathic pulmonary fibrosis. REVIEW OF SYSTEMS: A 10 point review of systems is as mentioned above in HPI; remaining review of systems is negative. PHYSICAL EXAMINATION: Vital signs reviewed. Temperature 37, pulse 81, respirations 16, BP 101/64, sats 94% on 1.5 L nasal cannula. General: Alert, oriented, appropriate, well-nourished. Neck: No cervical lymphadenopathy. HEENT: Oral mucosa is moist. No ulcers or thrush. Chest: Diffuse bilateral crackles. Normal respiratory effort at rest. Heart: Regular rate, rhythm. No murmurs. Abdomen: Soft, nontender. Slightly distended. Extremities: She does have about 1+ bilateral pitting edema. No cyanosis or clubbing. LABORATORIES: Reviewed. The CBC shows WBC 5.1, hemoglobin 11, platelets 199. Chemistry also reviewed and creatinine is normal at 0.69. BNP at the time of admission was greater than 4000 and is currently down to 1400. Intake and output shows weight on admission is 67/65 kg and currently down to 63 kg. Cultures: Only stool cultures were done and these are negative. IMAGING: I reviewed her chest CT from 03/17 and compared it to prior CT from 2014. There appears to be increased ground-glass opacity bilaterally, but I am not sure if this is due to change in quality, i.e. comparing high resolution versus regular CT or a new acute process. Echocardiogram done on March 21 shows severe pulmonary hypertension with RV systolic pressure estimated 90 mm, right ventricular size is significantly increased with evidence of RV pressure overload and moderate to severe reduction in RV function. ASSESSMENT AND RECOMMENDATIONS: 1. Acute hypoxic respiratory failure-on nasal cannula oxygen. 2. Interstitial lung disease due to rheumatoid arthritis. 3. Acute right heart failure/cor pulmonale. This 75-year-old woman with known interstitial lung disease due to rheumatoid arthritis has been relatively stable over the last year and is currently presenting with a combination of respiratory and GI symptoms as well as a 13 pound weight gain. She clearly has evidence of a new finding of cor pulmonale/acute right heart failure on her echo and has responded well to diuretics. I am not sure of the etiology of this, however, given that her lung disease has been stable and she has not shown any evidence of hypoxia in the past. There are a few possibilities including-an acute pulmonary infection-viral or otherwise, and acute pulmonary embolism or an acute exacerbation of her interstitial lung disease. I would like to start by doing a respiratory viral PCR looking for a viral infection that precipitated this event. We will also check a procalcitonin. In addition, I think we should do a CT pulmonary angiogram to rule out PE since that would be a reasonable explanation for acute change in her right heart status as seen on the current echo. If all of these tests are negative, then we probably should attribute her respiratory symptoms at least to an exacerbation of her underlying interstitial lung disease in which case I would probably add steroids and increase her mycophenolate back up to prior treatment dose. I will follow up tomorrow.
[2016-03-24] VITALS (10 sets, daily range): BP systolic 115–136; BP diastolic 72–87; PULSE 80–90; RESP 16–19; O2SAT 85–97
--- NOTE | 2016-03-24 03:54 | NUR ---
Pain c/o mild knee pain x1 this shift. Prn pain rx given and effective without any further complaints.
[2016-03-24 07:17] LABS: BASOPHILS % (AUTO) 0.7 % (0-3); EOSINOPHILS % (AUTO) 6.4 % (0-5); MONOCYTES % (AUTO) 13.7 % (4-12); Mean Corpuscular Hemoglobin 28.7 pg (27.0-35.0); NEUTROPHILS % (AUTO) 48.5 % (40-74); Platelet Count 191 bil/L (150-400)
[2016-03-24 07:48] LABS: Magnesium 1.8 mg/dL (1.6-2.6); Phosphorus 2.9 mg/dL (2.5-4.9)
[2016-03-24] MEDS: Pantoprazole 40 mg ER24 Tablet PO SCH (07:59)
[2016-03-24] MEDS: Trimethoprim-Sulfa 160 mg-800 mg Tablet PO SCH (07:59)
--- NOTE | 2016-03-24 10:51 | NUR ---
RESPIRATORY PO2 on O2 at 1 LPM is in the low to mid 90's. PO2 on room air-85 %. Denies SOB. RT to assess for home O2.
[2016-03-24] MEDS ORDERED: predniSONE 20 mg Tablet PO SCH (11:50)
[2016-03-24] MEDS ORDERED: PRED-508 PO ×2 (12:27→14:43)
[2016-03-24] MEDS ORDERED: FURO-129 PO (12:28)
[2016-03-24] MEDS ORDERED: MYCO250C PO (12:28)
--- NOTE | 2016-03-24 12:52 | PROG NOTE ---
[address] [address] PROGRESS NOTE PATIENT: CRISTIANE CHANCE : 1940 MR#: [id number] ADMIT: 03/20/2016 JOB ID: [id number] DATE: 03/24/2016 PULMONARY PROGRESS NOTE: The patient is a 75-year-old woman well known to me from outpatient pulmonary clinic for interstitial lung disease associated with rheumatoid arthritis presenting with acute on chronic hypoxic respiratory failure. INTERVAL HISTORY: She underwent CT pulmonary angiogram yesterday which showed no pulmonary embolism. Symptom-delgado she is unchanged, on 1-2 L nasal cannula. Continues to have some shortness of breath and edema. No change in cough. REVIEW OF SYSTEMS: As above. No fevers, chills. PHYSICAL EXAMINATION: Vital signs reviewed. Notable for 2 L nasal cannula. Afebrile. General: Alert oriented appropriate. Speaking full sentences. LABORATORIES: Reviewed. Notable for negative respiratory viral PCR. WBC normal. Procalcitonin is 0.08, therefore negative. CT pulmonary angiogram was reviewed and as before shows bilateral fibrotic lung disease with some basilar honeycombing and new evidence of ground-glass opacities predominantly in the lung bases. There is no pulmonary embolism. ASSESSMENT: 1. Acute hypoxic respiratory failure. 2. Interstitial lung disease associated with rheumatoid arthritis. 3. Cor pulmonale/acute right heart failure. RECOMMENDATIONS: Based on our workup, there appears to be no evidence of pulmonary embolism or acute infection that explains her current decompensation. Therefore, by elimination, I think the most likely cause of this episode is an exacerbation of her underlying interstitial lung disease. Since she has been on Bactrim for prophylaxis, she should not be at risk for Pneumocystis either. I spoke to the patient and the hospitalist taking care of her event. Plan currently is to start on prednisone 60 mg daily for one month followed by 40 mg daily for one month. I am going to see her back in clinic on April 03, at which point we can readdress this. I also want her to restart mycophenolate one tablet twice daily, i.e. 5 mg twice daily. She usually takes Myfortic which is dosed in 360 mg, and I will send this prescription to her pharmacy. I also think she should continue Lasix for her right heart failure but at a lower dose of 20 mg daily. I explained to her to check her weight every day and, if she is gaining weight or feeling worse, she should take an extra tablet, i.e. another 40 mg dose. She also needs to be on oxygen at home at least for now and we can reassess this at a later time as an outpatient. She needs to continue the Bactrim for PCP prophylaxis as before. The patient has early followup with me in approximately 10 days time.
--- NOTE | 2016-03-24 14:44 | PCM.DIMED ---
Discharge Instructions Date of Service Mar 24, 2016 Dates of Hospitalization Mar 20, 2016 at 18:09 Discharge Diagnosis Discharge Diagnosis acute respiratory failure secondary to worsening pulmonary fibrosis Cor pulmonale Medication Instructions Take lasix 20mg once a day for 2weeks, your can adjust base don your weight, swelling in your legs, cough/difficulty of breathing at night. Take Mycophenolate 500mg twice a day until you see Take [id number] once a day until you see , plan to continue for one month, 40mg for another month. Diet Low fat, Low Sodium, Heart Healthy Activity No restrictions Call your provider Shortness of breath, Chest pain Patient Instructions You were hospitalized with worsening cough, mucus diarrhea, You were found to have Right sided heart failure likely related to your underlying pulmonary fibrosis. Please follow medicine instructions as above Please follow general diet instruction for given heart failure Please use oxygen 1liter nasal cannula as directed, this given for significant pulmonary hypertension and hypoxia, which is proven treatment method beneficial for your lung conditions Follow-up plan Please follow up with on 04/03 as scheduled. Follow-up Provider: Evelia Stone MD Follow-up with PCP in: 2 weeks Cristel Greenberg MD Mar 24, 2016 12:34
--- NOTE | 2016-03-24 16:20 | NUR ---
DISCHARGE Patient complained of back pain. Naproxen PO has been effective for pain control. Tolerating liquids PO and her diet well. Denies nausea. No emesis noted. O2 at 1 LPM via [place]. Home O2 has been set-up by RT. Denies SOB at this time. Ambulating independently in the room. Tolerated activity well. Voiding without any problems. IV saline lock d/cd. Discharge instructions and care notes were given to the patient and she verbalized understanding. [facility] in [place] called and they verified that her medications have been escribed and is ready for pick-up. Discharged to home with her friend and all her personal belongings. (Copy of D/C is in the chart).
--- NOTE | 2016-03-26 15:32 | PCM.DC.MED ---
Discharge Summary Date of Service Mar 24, 2016 Dates of Hospitalization Date of Hospital Admission Mar 20, 2016 at 18:09 Date of Discharge: Mar 24, 2016 Providers: Admitting Physician: Jayjay Starkey MD Primary Care Physician: Jasmin Arceo Attending Physician: Jayjay Starkey MD Diagnosis at Time of Discharge Diagnosis at Time of Discharge #acute on chronic respiratory failure secondary to worsening idiopathic pulmonary fibrosis #Cor pulmonale, right-sided heart failure #Asymptomatic one episode of nonsustained V. tach 16beats, #persistent mild diarrhea with mucus, unclear etiology #mild transaminitis, POA, likely congestive hepatopathy chronic #Rheumatoid arthritis Consultations Pulmonary Procedures XRay, CTs & MRIs FINDINGS: Surgical changes and devices: Pessary device projects over the inferior pelvis. Bowel: No pneumoperitoneum. The bowel gas pattern is normal, with no visible stool within the distal colon. Soft tissues: Chronic basilar pulmonary interstitial opacities are again noted. No masses; visualized solid organ contours appear normal in size. No suspicious abdominal calcifications. Bones: No suspicious bony abnormalities. IMPRESSION: 1. No evidence for bowel obstruction or fecal impaction. 2. Background chronic interstitial lung disease again noted. Surgical changes and devices: None. Lungs and pleura: No pleural effusions or pneumothorax. No acute airspace opacities. Background basal predominant interstitial opacities are unchanged. Mediastinum: Mediastinal contours appear normal. Mild cardiomegaly is unchanged. Bones and chest wall: No suspicious bony lesions. Overlying soft tissues appear unremarkable. IMPRESSION: Background chronic interstitial lung disease as before, without superimposed acute pulmonary disease. ECG 12 Lead Sinus rhythm without acute ST or T-wave changes. Cardiac Echo Impression Echocardiogram Report Name: CRISTIANE CHANCE EStudy Date : 03/21/2016 Height: 61 in Hospital Exam Location: [facility] Weight: 145 lb Gender: Female BSA: 1.6 m2 : 1940 Age: 75 yrs BP: 129/85 mm Hg Reason For Study: Congestive Heart Failure History: pulmonary fibrosis Ordering Physician: Performed By: Valery Euceda Referring Physician: Jasmin Arceo Interpretation Summary The left ventricle is normal in size. The ejection fraction is estimated to be 65-70%. Flattened septum is consistent with RV pressure overload. There is severe pulmonary hypertension. The right ventricular systolic pressure is estimated at 90 mmHg assuming a right atrial pressure of 8 mm Hg. The right ventricle is moderate to severely dilated. Right ventricular systolic function is moderate to severely reduced. The right atrium is severely dilated. The interatrial septum bows toward left atrium consistent with elevated right atrial pressure. There is moderate to severe tricuspid regurgitation. Compared with the prior exam from 09/03/2014, the RV is significantly enlarged and RV function reduced. The severe TR and severe pulmonary hypertension is also new. No other echocardiographic abnormalities seen. Brief History H&P performed by on 03/20 This is a 75-year-old female who has a history of idiopathic interstitial fibrosis, not oxygen dependent. This is thought to be related to her rheumatoid arthritis. She has been experiencing abdominal bloating, along with diminished bowel movements for the last 1-2 weeks. She describes frequent liquid bowel movements without a solid component. Her BNP is very high, and she feels much better in the emergency department after a dose of Lasix. An echocardiogram done last year she reports was normal. She was dropping into the low 80s with activity on room air in the emergency department initially but is feeling much better now after the Lasix. She has never been diagnosed with congestive heart failure and has no cardiac history. There has been no chest pain, palpitations, abdominal pain. There has been no fever or muscle aches but her chronic cough has worsened. She has not traveled anywhere recently and has had no other immobilizing episodes to put her at high risk for a pulmonary embolus. As part of her pulmonary surveillance she had a CT of her chest done just 4 days ago. She will be seeing Dr. Stone in follow-up soon. She had a colonoscopy in [address] [place] [address] Elder and plans for another one in 2019. Her description of the "constipation" sounds worrisome for a solid lesion obstructing with postobstructive liquid leakage. Hospital Course This is a 75-year-old female who has a history of idiopathic interstitial fibrosis, not oxygen dependent. This is thought to be related to her rheumatoid arthritis. She has been experiencing abdominal bloating, along with diminished bowel movements for the last 1-2 weeks. She describes frequent liquid bowel movements without a solid component. Her BNP is very high, and she feels much better in the emergency department after a dose of Lasix. An echocardiogram done last year she reports was normal. She was dropping into the low 80s with activity on room air in the emergency department initially but is feeling much better now after the Lasix. She has never been diagnosed with congestive heart failure and has no cardiac history. There has been no chest pain, palpitations, abdominal pain. There has been no fever or muscle aches but her chronic cough has worsened. She has not traveled anywhere recently and has had no other immobilizing episodes to put her at high risk for a pulmonary embolus. As part of her pulmonary surveillance she had a CT of her chest done just 4 days ago. She will be seeing Dr. Stone in follow-up soon. #RHF, cor pulmonale presumably due to pulmonary fibrosis. TTE 03/21 showed [id number], normal EF/LV function. pt was initially started on beta christian and ANDRES inhibitor given no left-sided heart failure, this regimen was discontinued. A urinalysis with Lasix 40 mg twice a day stint working well, decreased lower extremity edema effectively, cardiology was briefly consulted curbside, did not particularly feel that patient needs urgent cardiac intervention for right- sided heart failure. Diuretics was eventually titrated down to Lasix 20 mg by mouth, was asked to patient's to monitor her weight, maintain on low sodium diet. #Asymptomatic one episode of nonsustained V. tach 16beats, resolved with aggressive electrolytes replacement #chronic cough secondary to idiopathic interstitial fibrosis ?likely a/w RA, not home O2. Recent chest CT 03/17 showed Overall increase in the severity of pulmonary fibrosis when compared with the prior study(). Specifically, the extent of disease is increased in the upper and midlungs when compared with the prior study.No superimposed acute air space disease. Patient was seen by her regular commutator repairer , CT angiogram of chest showed no PE contributing to severe pulmonary hypertension, eventually recommended to start steroid 60 mg daily, increased CellCept to 500 mg twice a day, patient also requires home oxygen 2 L on nasal cannula, SpO2 maintained above 90% #persistent diarrhea with mucus, possible blood, POA, CT abd with contrast 03/21 showed Mild pericolonic fat stranding in the region of the rectosigmoid which is a nonspecific finding vs mild colitis. There is no associated wall thickening in this region. stool PCR/FOBT all neg. even though this was the one of the major presentation of this admission, stool PCR also negative for any infectious causes, pt was tolerating diet very well. Patient was supportively treated, therefore, patient was asked to follow up possibly GI in the clinic later #mild transaminitis, POA, likely congestive hepatopathy, improved with improved volume status chronic, stable #Rheumatoid arthritis, not active, been controlled on Enbrel several yrs, continue trimethoprim sulfamethoxazole on Sunday, Sunday and Sunday Exam Vital Signs (Last) Date Time Temp Pulse Resp B/P Pulse Ox O2 Delivery O2 Flow Rate FiO2 03/24/16 15:39 Room Air 03/24/16 11:50 1.00 03/24/16 11:50 84 03/24/16 10:46 85 03/24/16 07:57 16 136/87 03/24/16 04:28 36.5 Exam NAD, comfortably laying down on the bed no JVD, MMM, no LAD RRR, nl s1, s2 no mrg diffuse inspiratory crackles S,ND,NT,normoactive BS+ warm, 1+pitting edema, symmetric, pulses 2/2 Test 03/20/16 15:52 03/20/16 16:40 03/22/16 01:55 03/24/16 06:45 Urine Color Yellow (YELLOW) Urine Appearance Hazy (CLEAR,HAZY) Urine pH 5.5 (5.0-8.0) Urine Specific [place] 1.030 (1.003-1.035) Urine Protein Tracemg/dL (NEG,TRACE) Urine Glucose (UA) Negativemg/dL (NEGATIVE) Urine Ketones Negativemg/dL (NEGATIVE) Urine Occult Blood Negative (NEGATIVE) Urine Nitrite Negative (NEGATIVE) Urine Bilirubin Negative (NEGATIVE) Urine Urobilinogen Normalmg/dL (NORMAL) Urine Leukocyte Esterase Negative (NEGATIVE) Urine RBC 0-2/hpf (0-2) Urine WBC 0-5/hpf (0-5) Urine Epithelial Cells Occasional/hpf (NONE-MOD) Urine Crystals None seen (NONE SEEN) Urine Bacteria None/hpf (NONE-FEW) Urine Hyaline Casts None/lpf (NONE) Urine Granular Casts None seen (NONE SEEN) Urine Waxy Casts None seen (NONE SEEN) Urine Red Blood Cell Casts None seen (NONE SEEN) Urine White Blood Cell Casts None seen (NONE SEEN) Urine Mucus None seen (None Seen) Urine Trichomonas None seen (NONE SEEN) Urine Yeast None (NONE SEEN) Urinalysis Comment None Urine Culture Reflexed Not indicated Hold Purple Top Tube Received (Received) Hold Blue Top Tube Received (Received) Thyroid Stimulating Hormone (TSH) 2.420uIU/mL (0.450-4.500) Hold [place] Top Tube Received (Received) Hold [place] Top Tube Received (Received) Troponin T 0.010ug/L (0.0-0.011) White Blood Count 5.3th/mm3 (3.8-10.1) Red Blood Count 4.01mil/mm3 (3.90-5.20) Hemoglobin 11.5g/dL (12.0-15.6) Hematocrit 36.9% (35.0-46.0) Mean Corpuscular Volume 92.0fL (81-100) Mean Corpuscular Hemoglobin 28.7pg (27.0-35.0) Mean Corpuscular Hemoglobin Concent 31.2% (32.0-37.0) Red Cell Distribution Width 16.4% (12.3-15.4) Platelet Count 191bil/L (150-400) Neutrophils (%) (Auto) 48.5% (40-74) Lymphocytes (%) (Auto) 30.5% (14-46) Monocytes (%) (Auto) 13.7% (4-12) Eosinophils (%) (Auto) 6.4% (0-5) Basophils (%) (Auto) 0.7% (0-3) Sodium Level 145mEq/L (134-144) Potassium Level 3.8mEq/L (3.5-5.2) Chloride Level 102mEq/L (97-108) Carbon Dioxide Level 35mmol/L (18-29) Blood Urea Nitrogen 11mg/dL (8-27) Creatinine 0.62mg/dL (0.57-1.00) Estimat Glomerular Filtration Rate 134mL/min (>59) Glucose Level 95mg/dL (60-99) Calcium Level 8.1mg/dL (8.5-10.1) Phosphorus Level 2.9mg/dL (2.5-4.9) Magnesium Level 1.8mg/dL (1.6-2.6) Total Bilirubin 0.4mg/dL (0.0-1.2) Aspartate Amino Transf (AST/SGOT) 39U/L (0-50) Alanine Aminotransferase (ALT/SGPT) 29U/L (0-32) Alkaline Phosphatase 66U/L (25-165) Pro-B-Type Natriuretic Peptide 1768pg/mL (0-738) Total Protein 5.2g/dL (6.4-8.4) Albumin 2.9g/dL (3.4-5.0) Procalcitonin 0.08ng/mL (See Comment) Discharge Medications Discharge Medications Albuterol Sulfate (Proair Respiclick) 90 Mcg Aer.pow.ba 90 MCG IH Q4 (Reported) Allopurinol (Allopurinol) 300 Mg Tablet 300 MG PO DAILY (Reported) Atenolol (Atenolol) 50 Mg Tablet 50 MG PO DAILY (Reported) Cholecalciferol (Vitamin D3) (Vitamin D) 1,000 Unit Capsule 1,000 UNIT PO DAILY (Reported) Etanercept (Enbrel) 50 Mg/1 Ml Pen.injctr 50 MG SQ WEEKLY ON SUNDAY (Reported ) Furosemide (Lasix) 20 Mg Tablet 20 MG PO DAILY Prescribed by: CRISTEL GUTIERREZ MD Leflunomide (Leflunomide) 20 Mg Tablet 20 MG PO DAILY (Reported) Mycophenolate Mofetil (Cellcept) 250 Mg Capsule 500 MG PO BID Prescribed by: CRISTEL GUTIERREZ MD Omeprazole (Omeprazole) 40 Mg Capsule.dr 40 MG PO DAILY (Reported) Prednisone (Deltasone) 20 Mg Tablet 60 MG PO DAILY Prescribed by: CRISTEL GUTIERREZ MD Simvastatin (Simvastatin) 20 Mg Tablet 20 MG PO HS (Reported) Sulfamethoxazole/Trimeth 800-160 mg (Bactrim DS) 1 Each Tablet 1 TABLET PO 3XA WEEK (Reported) TAKE ON MON,WED, FRI As needed Clobetasol Propionate/Emoll (Clobetasol Emollient 0.05% Crm) 15 Gm Cream..g. 1 APPL TOP BID PRN PRN AD (Reported) diphenhydrAMINE HCl (Benadryl) 25 Mg Capsule 25-50 MG PO HS PRN PRN (Reported) Additional med instructions Take lasix 20mg once a day for 2weeks, your can adjust base don your weight, swelling in your legs, cough/difficulty of breathing at night. Take Mycophenolate 500mg twice a day until you see Take [id number] once a day until you see , plan to continue for one month, 40mg for another month. Followup Plan Disposition: Home with home O2 Follow-up plan Please follow up with on 04/03 as scheduled. Discharge Diet: Low fat, Low Sodium, Heart Healthy Discharge Activity: No restrictions Patient Instructions You were hospitalized with worsening cough, mucus diarrhea, You were found to have Right sided heart failure likely related to your underlying pulmonary fibrosis. Please follow medicine instructions as above Please follow general diet instruction for given heart failure Please use oxygen 1liter nasal cannula as directed, this given for significant pulmonary hypertension and hypoxia, which is proven treatment method beneficial for your lung conditions Follow-up Provider: Evelia Stone MD Follow-up with PCP in: 2 weeks Time spent 65min Cristel Gutierrez MD Mar 26, 2016 15:31
== END 2016-03-24 16:20 | disposition home or self-care (01) | DRG 197 ==
LOC: SED 14:24 → OBSVTOIN 18:09 → OSC 18:09
PROVIDERS: ADMIT Family Medicine; ATTEND Family Medicine
DX: J84.9 Interstitial pulmonary disease, unspecified (principal); I47.2 Ventricular tachycardia; J96.11 Chronic respiratory failure with hypoxia; M06.9 Rheumatoid arthritis, unspecified; G62.9 Polyneuropathy, unspecified; Z87.891 Personal history of nicotine dependence; E83.42 Hypomagnesemia; I27.2 Other secondary pulmonary hypertension; R19.7 Diarrhea, unspecified